=== PATIENT | female | born 1960 | race Caucasian/White ===

== ENCOUNTER 2017-07-19 06:19 | Inpatient (IN) ==
[~2017-07-19 06:19] MED LIST: Bacitracin 50,000 UNIT, Polymyxin B Sulfate 500,000 UNIT, Sodium Chloride IRRigation 1,... IR ONE
[2017-07-19] MEDS ORDERED: CeFAZolin Syr 2,000MG/20 ML 2,000 MG/20 ML SYRINGE IVPB ONE (06:36)
[2017-07-19] MEDS ORDERED: Albuterol 2.5 MG/3 ML NEBULIZER IH ONE (06:36)
[2017-07-19] MEDS ORDERED: Albuterol 2.5 MG/3 ML NEBULIZER ONE (06:42)
[2017-07-19] MEDS ORDERED: Ringers Solution, Lactated 1,000 ML IVC SCH (06:45)
[2017-07-19] MEDS ORDERED: *HR* Midazolam HCl 2 MG/2 ML VIAL ONE (06:47)
[2017-07-19] MEDS ORDERED: *HR* Propofol 200 MG/20 ML VIAL IVP ONE (06:47)
[2017-07-19] MEDS ORDERED: Lidocaine -MPF 2% 2 ML VIAL ONE ×2 (06:47→06:56)
[2017-07-19] MEDS ORDERED: Lidocaine -MPF 4% 5 ML AMPUL ONE (06:47)
[2017-07-19] MEDS ORDERED: *HR* FentaNYL (PF) 100 MCG/2 ML VIAL ONE (06:47)
[2017-07-19] MEDS ORDERED: Ondansetron 4 MG/2 ML VIAL ONE (06:47)
--- NOTE | 2017-07-19 07:25 | Anesthesia Evaluation PreOp ---
Date of Encounter: 07/19/17 Time of Encounter: 07:20 - Past History Planned Operation: exploration of spinal fusion, removal of hardware Cardiac History: HTN, Other (Has had a heart cath in the past, no stents. No sign. pathology identified. 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 Any Significant HX, Other (anxiety) Other Medical History: Denies Any Significant HX Anesthesia History: No Prior Anesthetic Complications, Past Anesthesia Alcohol Use: none Drug use: marijuana (Nearly daily marijuana use for self treatment of anxiety.) Medications and Allergies Atenolol [Tenormin] 25 mg PO DAILY 09/02/15 [History] Atorvastatin [Lipitor] 40 mg PO HS 09/02/15 [History] Ranitidine HCl [Zantac] 150 mg PO BID 11/12/16 [History] Gabapentin [Neurontin] 300 mg PO TID 07/19/17 [History] Lisinopril-HCTZ 20-12.5 [Prinzide 20-12.5] 1 tab PO DAILY 07/19/17 [History] clonazePAM [Klonopin] 0.5 mg PO BID 07/19/17 [History] 3 Allergy/AdvReac Type Severity Reaction Status Date / Time ibuprofen [From Motrin] Allergy Hives Verified 07/13/17 15:31 naproxen Allergy Hives Verified 07/13/17 15:31 propoxyphene Allergy Hives Verified 07/13/17 15:31 [From Darvocet-N 100] soybean [From Ultramino] Allergy Hives Verified 07/13/17 15:31 - Meds/Allergy Pre-op Review Medications Reviewed: Yes Allergies Reviewed: Yes Beta Blockers on Current Med List: Yes (atenolol at 0415) Anesthesia Results - Imaging EKG: image reviewed (sinus efren) Anesthesia Exam Selected Entries 07/19/17 06:40 Temperature 98.6 F Pulse Rate 54 Respiratory Rate 18 Blood Pressure 120/82 O2 Sat by Pulse Oximetry 96 Weight: 63 kg NPO (# of Hours): over 8 hours - HEENT Pupil (Motor): Pupils equal Mallampati: I Teeth: Edentulous Oral Opening: Greater than 3 - Cardiac Rhythm: Regular Murmur: None - Pulmonary Breath Sounds: bilateral Rhonchi Respiratory Effort: Symmetrical Anesthesia Assess/Plan ASA Score: 3 Modified Lani Scale for Level of Consciousness: Cooperative, oriented, and tranquil Anesthetic Plan: General Monitoring Plan: Standard Monitors Recovery Plan: PACU
[2017-07-19] MEDS ORDERED: *HR* Remifentanil 2 MG VIAL IVP ONE (07:26)
[2017-07-19] MEDS ORDERED: Lidocaine -MPF 1% 2 ML VIAL ONE (07:40)
--- NOTE | 2017-07-19 08:04 | History & Physical Report ---
Date of Encounter: 07/19/17 Time of Encounter: 08:03 24 Hour HP Update - Instructions Instructions: If the History and Physical is less than 30 days old and was completed prior to A.M. admission and or procedure and has NOT been updated on calendar day of procedure please complete this update prior to performing procedure. - Update Patient reports changes in Medical Condition: No Changes in examination, assessment, or condition: No Changes in Medication: No Preop tests/diagnostics Reviewed: Yes Pre-Op MRSA Screen: Negative Surgery Remains Indicated: Yes Consent for Planned Operative Procedure(s) Verified: Yes - Pre-Operative Checklist Preoperative Checklist Indicated: No Prophylactic Antibiotic Ordered: Yes Home Medications Include Beta Chan: Yes Beta Chan Taken Today (Day of Surgery): No Beta Chan Taken Yesterday (Day Prior to Surgery): Yes Is VTE Prophylaxis Indicated?: Yes
[2017-07-19] MEDS ORDERED: EPHEDrine 50 MG/ML VIAL ONE (08:30)
[2017-07-19] MEDS ORDERED: Water for inj. (sterile) 10 ML IV ONE (08:31)
[2017-07-19] MEDS ORDERED: Ondansetron 4 MG/2 ML VIAL IVP ONE ×2 (08:42→17:51)
[2017-07-19] MEDS ORDERED: *HR* Promethazine 25 MG/ML VIAL IVP PRN (08:42)
[2017-07-19] MEDS ORDERED: *HR* Labetalol 20 MG/4 ML SYRINGE IVP PRN (08:42)
[2017-07-19] MEDS ORDERED: *HR* Morphine 2 MG/ML SYRINGE IVP PRN (08:42)
[2017-07-19] MEDS ORDERED: *HR* Rocuronium Bromide 50 MG/5 ML VIAL ONE (09:58)
[2017-07-19] MEDS ORDERED: *HR* Phenylephrine 10 MG/ML VIAL ONE (09:58)
[2017-07-19] MEDS ORDERED: Dexamethasone 4 MG/ML VIAL ONE (09:58)
[2017-07-19] MEDS ORDERED: *HR* Succinylcholine 200 MG/10 ML VIAL IVP ONE (09:58)
[2017-07-19] MEDS ORDERED: *HR* HYDROmorphone 2 MG/ML SYRINGE ONE (10:49)
--- NOTE | 2017-07-19 11:50 | Orthopedic Operative Note ---
Date of procedure: 07/19/17 Pre-op diagnosis: Lumbar stenosis, lumbar radiculopathy, history of lumbar fusion Post-op diagnosis: same Operation/Findings: Exploration of fusion, removal of hardware, posterior lumbar interbody fusion L3 -L5: The patient successfully underwent general endotracheal anesthesia. The patient was given antibiotics prior to the start of the procedure. Compression boots and stockings were used for deep vein thrombosis prophylaxis. A Bueno catheter was placed. Leads for neuro monitoring were placed on the upper and lower extremities. This included the cranium. The neuro monitoring personnel confirmed there were satisfactory readings prior to the start of the procedure. The patient was turned prone on the Lee table. The back was prepped and draped in the usual sterile fashion. An incision was was marked and centered over the involved L3-S1 levels in the mid line. The incision was deepened through the lumbar fascia. Bovie cautery and Palma elevators were used to reflect the paraspinal musculature at the lateral extent of the transverse processes of the L3, L4, L5, and S1 involved levels. Gudelia clamps were placed over the L4 and L5 spinous processes. An intraoperative lateral fluoroscopy graft was obtained. A conversation was held between the surgeon and radiologist and both confirmed we had the correct operative levels. We further exposed the hardware which is apparent at L5-S1. The fusion mass at L5-S1 was explored and palpated. There appeared to be a solid arthrodesis at this L5-S1 level. Using standard instruments the rods and pedicle screws were removed bilaterally at L5 and S1. We then placed pedicle screws in standard fashion with the aid of fluoroscopy and anatomic landmarks. Briefly a starter awl was used. A gearshift was subsequently used to enter the airline pilot/first officer hole via a transpedicular route into the vertebral body. The airline pilot/first officer hole was tapped with an undersized instrument, and subsequently six 6.5 x 40 mm pedicle screws were placed bilaterally at the indicated L3, L4, and L5 levels. The screws were tested with the aid of the neurologic monitoring staff via pedicle screw stimulation. All reading suggested there was no significant cortical wall breech. The screws were also evaluated fluoro- graphically and appeared to be in satisfactory position. We then turned our attention to the decompression portion of the procedure. We removed the supraspinous and interspinous ligaments and subsequently the insertion of the ligamentum flavum on the undersurface of the proximal L4 lamina was dislodged with a curette. We then removed the ligamentum flavum as well as undercut the L4-5 facets at this level to decompress the lateral recesses. We also performed a L4 laminectomy. After the decompression, which was over and above that which was required to place the interbody graft, the foramen and traversing roots at this level were found to be free and patent. We also took part of the medial facet in order to aid in the decompression. We proceeded proximally to the L3-4 level and again performed a L3 laminectomy, removed hypertrophied ligamentum flavum, undercut the facets at the L3-4 level to decompress the lateral recesses, and perform partial medial facetectomies. Again we found the foramen and traversing nerve roots at this level to be free and patent after the decompression. We then protected the neural elements including the thecal sac and traversing nerve root on the right at L4-5 with a dural retractor. We made an annulotomy into the L4-5 disc space and then removed entire disc material using Pituitary instruments. We trialed various size grafts after the endplates were prepared for graft insertion. A 10 x 26 enter body graft fit well within the L4-5 disc space. We obtained some bone from the right posterior superior iliac spine through us a separate incision and combined with this with the bone which we had saved from the laminectomies portion of the procedure. This autograft bone was first placed in the anterior portion of the L4-5 disc space and additional bone was placed within the interbody graft spacer. We then placed the interbody graft spacer obliquely across the L4-5 disc space towards the midline while protecting the neural elements with a root retractor. When the graft was found to be in satisfactory position the automatic pinsetter adjuster was removed. We then copiously irrigated the wound. We then decorticated the transverse processes of L3, L4, and L5 as well as the facet joints of the involved L3-4 and L4-5 levels to aid in the posterolateral fusion. We placed autograft bone in the lateral gutters over these regions. We then placed rods within the screw heads of the involved L3, L4, and L5 levels and first locked the distal screws and then subsequently locked the proximal screws so as to improve and reduce the spondylolisthesis previously seen. We then closed the wound in layers with 1 Vicryl for the fascia, 2-0 Vicryl. Subcutaneous tissue, and Dermabond was used for skin closure. Sterile dressings were placed over the wound. The patient was turned supine on a hospital bed and extubated. All sponge instruments and needle counts were correct at the end of the procedure. The patient tolerated the procedure well without complications. Anesthesia: VITOA Surgeon: Monroe Marrero Jr Was there an orthodontist assistant present: No Estimated blood loss (cc): 375 Specimen: None Condition: stable Disposition: PACU
[2017-07-19] MEDS ORDERED: *HR* HYDROmorphone (PF) 1 MG/ML SYRINGE ONE (12:04)
[2017-07-19] MEDS: *HR* HYDROmorphone (PF) 1 MG/ML SYRINGE IVP PRN ×2 (12:05→12:10)
[2017-07-19] MEDS ORDERED: Ondansetron 4 MG/2 ML VIAL IVP PRN (12:47)
[2017-07-19] MEDS ORDERED: Naloxone 0.4 MG/ML INJ IVP PRN (12:47)
[2017-07-19] MEDS ORDERED: *HR* OxyCODONE Immed Rel 5 MG TABLET PO SCH (12:47)
[2017-07-19] MEDS: Ringers Solution, Lactated 1,000 ML IVC SCH ×2 (13:32→23:03)
--- NOTE | 2017-07-19 13:43 | Anesthesia Evaluation Post Op ---
Date of Encounter: 07/19/17 Time of Encounter: 13:00 - Vital Signs Vital Signs: Vital Signs/O2 Sat/Glucose, Most Current Temp Pulse Resp BP Pulse Ox 07/19/17 12:47 97.1 F L 67 16 105/61 98 07/19/17 12:37 67 16 113/71 98 07/19/17 12:27 97.1 F L 64 16 120/71 98 07/19/17 12:17 66 16 117/67 98 07/19/17 12:07 66 12 126/83 98 07/19/17 11:57 97.6 F 79 10 127/89 99 - Lungs Lungs: Clear Ascult./Percussion - Airway Airway: Non-obstructed - Cardiovascular Regular Rate - Mental Status Mental Status: Alert & Oriented, Answers Appropriately - Pain Pain Scale: 1 - Nausea Vomiting Nausea Vomiting: Not Present - Hydration Hydration: Ice chips - Discharge PostOp Status: Transfer Patient to floor
[2017-07-19] MEDS: CeFAZolin Premix DUPLEX 2,000 MG/50 ML BAG IVPB SCH ×2 (15:15→23:03)
[2017-07-19] MEDS: *HR* OxyCODONE Immed Rel 5 MG TABLET PO PRN ×2 (16:39→20:10)
[2017-07-19] MEDS: *HR* Morphine 2 MG/ML SYRINGE IVP PRN ×2 (17:29→22:15)
[2017-07-19] MEDS: clonazePAM 0.5 MG TABLET PO SCH (20:07)
[2017-07-19] MEDS: Famotidine 20 MG TABLET PO SCH (20:07)
[2017-07-20] MEDS: *HR* OxyCODONE Immed Rel 5 MG TABLET PO PRN ×6 (00:14→23:17)
[2017-07-20] MEDS: *HR* Morphine 2 MG/ML SYRINGE IVP PRN ×5 (02:49→20:53)
[2017-07-20 06:54] LABS: Basophils % 0.1 %; Eosinophils % 0.1 %; Hematocrit 29.2 % (35.3-44.9); Immature Granulocytes % 0.3 % (0-4); Lymphocytes # 2.8 K/mcL (0.6-4.6); Lymphocytes % 18.5 %; Mean Corpuscular HGB Conc 32.9 g/dL (31.6-35.5); Mean Corpuscular Hemoglobin 30.3 pg (28.0-33.3); Mean Corpuscular Volume 92.1 fL (83.0-100.0); Mean Platelet Volume 10.5 fL (9.4-12.4); Monocytes # 1.2 K/mcL (0.0-1.3); Platelet Count 235 K/mcL (140-400); Red Blood Count 3.17 M/mcL (3.82-4.97); Red Cell Distribution Width 13.2 % (11.5-14.5)
[2017-07-20 06:58] LABS: Hemoglobin 9.6 g/dL (11.5-15.4)
[2017-07-20] MEDS: Lisinopril-HCTZ 20-12.5mg TABLET PO SCH (08:00)
[2017-07-20] MEDS: Famotidine 20 MG TABLET PO SCH ×2 (08:00→19:33)
[2017-07-20] MEDS: clonazePAM 0.5 MG TABLET PO SCH ×2 (08:00→19:33)
[2017-07-20] MEDS: Acetaminophen 325 MG TABLET PO PRN ×2 (08:01→16:14)
[2017-07-20 09:41] LABS: BUN/Creatinine Ratio 21 (6-26); Blood Urea Nitrogen 10 mg/dL (6-20); Calcium 8.6 mg/dL (8.6-10.3); Carbon Dioxide 25 mEq/L (23-29); Chloride 109 mEq/L (98-107); Glucose 109 mg/dL (70-105); Osmolality,Calculated 290 (280-300); Potassium 3.7 mEq/L (3.5-5.1); Sodium 140 mEq/L (136-145); eGFR For African Americans > 60 (> 60); eGFR For Non-African Americans > 60 (> 60)
[2017-07-21] MEDS: *HR* Morphine 2 MG/ML SYRINGE IVP PRN ×2 (02:14→06:38)
[2017-07-21] MEDS: *HR* OxyCODONE Immed Rel 5 MG TABLET PO PRN ×3 (05:11→22:11)
--- NOTE | 2017-07-21 08:28 | Spine Progress Note ---
Date of Encounter: 07/20/17 Time of Encounter: 19:25 Subjective Principal diagnosis: Status post lumbar fusion Interval history: The patient is without complaints. Afebrile vital signs are stable. Incision is clean dry and intact. Neurovascularly intact with regard to bilateral lower extremities. Fires all upper and lower extremity motor groups. Assessment : stable. Plan mobilize ,continue analgesics, discharge planning. Objective Vital signs: Vital Signs Temp Pulse Resp BP Pulse Ox 07/21/17 06:50 98.8 F 78 16 114/78 96 07/21/17 00:17 99.5 F 73 17 111/73 95 07/20/17 20:31 99.2 F 73 18 101/65 93 07/20/17 15:51 99.3 F 64 16 99/64 94 07/20/17 10:56 98.3 F 69 16 135/80 95 Intake and Output 07/20/17 07/21/17 07/21/17 23:59 07:59 15:59 Intake Total 50 / 50 Balance 50 / 50 Intake: Oral 50 / 50 - Labs CBC & BMP: 07/20/17 06:42 07/20/17 06:42 Labs: Abnormal lab results WBC 15.1 K/mcL (4.3-11.1) H D 07/20/17 06:42 RBC 3.17 M/mcL (3.82-4.97) L 07/20/17 06:42 Hgb 9.6 g/dL (11.5-15.4) L D 07/20/17 06:42 Hct 29.2 % (35.3-44.9) L 07/20/17 06:42 Neutrophils # 11.0 K/mcL (1.6-8.9) H 07/20/17 06:42 Chloride 109 mEq/L (98-107) H 07/20/17 06:42 Creatinine 0.48 mg/dL (0.60-1.20) L 07/20/17 06:42 Glucose 109 mg/dL (70-105) H 07/20/17 06:42 Consult Discharge Plan - Plan Referrals: Crystal Morelos, [employer] ACCOUNT MANAGER [Primary Care Provider] -
[2017-07-21] MEDS: Lisinopril-HCTZ 20-12.5mg TABLET PO SCH (09:01)
[2017-07-21] MEDS: clonazePAM 0.5 MG TABLET PO SCH (09:01)
[2017-07-21] MEDS: Famotidine 20 MG TABLET PO SCH ×2 (09:01→20:33)
[2017-07-21] MEDS ORDERED: *HR* OxyCODONE Immed Rel 5 MG TABLET PO PRN (14:12)
[2017-07-22] MEDS: clonazePAM 0.5 MG TABLET PO SCH ×2 (01:24→10:08)
[2017-07-22] MEDS: *HR* OxyCODONE Immed Rel 5 MG TABLET PO PRN ×3 (06:22→16:00)
[2017-07-22] MEDS: Lisinopril-HCTZ 20-12.5mg TABLET PO SCH (10:09)
[2017-07-22] MEDS: Famotidine 20 MG TABLET PO SCH (10:09)
[2017-07-22 11:26] VITALS: BP 114/76
--- NOTE | 2017-07-22 14:00 | Discharge Summary ---
Date of Encounter: 07/22/17 Time of Encounter: 13:57 - Discharge Diagnosis (1) Lumbar stenosis Priority: Primary Status: Acute Qualifiers: Neurogenic claudication status: without neurogenic claudication Qualified Code(s): M48.061 - Spinal stenosis, lumbar region without neurogenic claudication (2) Lumbar radiculopathy Priority: Secondary Status: Chronic (3) History of lumbar spinal fusion Priority: Secondary Status: Chronic - Discharge Medications Prescriptions: OxyCODONE Immed Rel [Roxicodone 5 MG] 5 mg PO Q4HR PRN #30 tablet PRN Reason: Pain Home Medications: Atenolol [Tenormin] 25 mg PO DAILY 09/02/15 [History] Atorvastatin [Lipitor] 40 mg PO HS 09/02/15 [History] Ranitidine HCl [Zantac] 150 mg PO BID 11/12/16 [History] Gabapentin [Neurontin] 300 mg PO TID 07/19/17 [History] Lisinopril-HCTZ 20-12.5 [Prinzide 20-12.5] 1 tab PO DAILY 07/19/17 [History] clonazePAM [Klonopin] 0.5 mg PO BID 07/19/17 [History] OxyCODONE Immed Rel [Roxicodone 5 MG] 5 mg PO Q4HR PRN #30 tablet 07/22/17 [Rx] Allergies/Adverse Reactions: 3 Allergy/AdvReac Type Severity Reaction Status Date / Time ibuprofen [From Motrin] Allergy Hives Verified 07/13/17 15:31 naproxen Allergy Hives Verified 07/13/17 15:31 propoxyphene Allergy Hives Verified 07/13/17 15:31 [From Darvocet-N 100] soybean [From Ultramino] Allergy Hives Verified 07/13/17 15:31 - Impressions ITS Impressions Lumbar Spine X-Ray 07/19/17 00:00 IMPRESSION: Status post L3-L5 posterior spinal fusion. Interbody spacers at L4-L5 and L5-S1. Interval previously demonstrated L5-S1 posterior spinal fusion hardware. D/ / Alexx Penn MD / Alexx Penn MD Interpreting Provider: Alexx Penn MD Lumbar Spine X-Ray 07/22/17 08:30 IMPRESSION: Satisfactory appearance of lumbar spine following fusion between L3 and L5. D/ / Jonathon Pantoja MD / Jonathon Pantoja MD Interpreting Provider: Jonathon Pantoja MD Date of admission: 07/19/17 13:57 Primary care physician: Crystal Morelos CNP Consults: 07/19/17 12:47 Consult to Occupational Therapy [CONS] Routine Comment: Evaluate, develop and implement POC Reason for Consult: Postoperative rehabilitation Consult to Physical Therapy [CONS] Routine Comment: Evaluate, develop and implement POC Reason for Consult: Postoperative rehabilitation Consult to Spine Navigator [CONS] [CONS] Routine - Patient Status Disposition: Home, Self-Care Condition: Good Functional capacity at discharge: independent ambulation Overall status at discharge: patient is progressing back to baseline - Discharge Instructions Follow Up With: Taty Engel PAC [Physician Grain Drier] - 08/03/17 9:30 am Bladimir Gentile MD [Partnered Physician] - 09/06/17 2:30 pm Monroe Marrero Jr, MD [Partnered Physician] - 10/21/17 11:15 am Crystal Morelos CNP [Primary Care Provider] - - Diet and Activity Activity: as per physical therapy Diet: advance to your usual diet - Hospital Course Hospital course: Ms. Panchal is a 56 year old female The patient had an uneventful postoperative course. Progressed from intravenous analgesic needs to oral analgesic needs only. Remained neurovascularly intact and mobilized satisfactorily. All intraoperative and/or postoperative radiographic studies were satisfactory. Patient is discharged with plan for rehabilitation and follow-up in 2 weeks post discharge on analgesic medication and patient's home medications. - Time Spent with Patient Total time spent providing and/or coordinating discharge services: - VTE Documentation of Mechanical Device: Graduated compression elastic hosiery
--- NOTE | 2017-07-22 14:39 | Spine Progress Note ---
Date of Encounter: 07/21/17 Time of Encounter: 16:30 - Assessment and Plan (1) Lumbar stenosis Current Visit: Yes Status: Acute Qualifiers: Neurogenic claudication status: without neurogenic claudication Qualified Code(s): M48.061 - Spinal stenosis, lumbar region without neurogenic claudication (2) Lumbar radiculopathy Current Visit: Yes Status: Chronic (3) History of lumbar spinal fusion Current Visit: Yes Status: Chronic Subjective Principal diagnosis: Status post lumbar fusion Interval history: The patient is without complaints. Afebrile vital signs are stable. Incision is clean dry and intact. Neurovascularly intact with regard to bilateral lower extremities. Fires all upper and lower extremity motor groups. Assessment : stable. Plan mobilize ,continue analgesics, discharge planning. Objective Vital signs: Vital Signs Temp Pulse Resp BP Pulse Ox 07/22/17 10:17 98 07/22/17 09:44 98.4 F 98 16 114/76 98 07/22/17 06:30 98.7 F 78 16 127/84 98 07/22/17 01:10 98.4 F 83 17 122/80 97 07/21/17 20:39 98.4 F 81 17 111/76 95 07/21/17 15:05 98.3 F 77 16 104/61 99 Intake and Output 07/21/17 07/22/17 07/22/17 23:59 07:59 15:59 Intake Total 400 / 400 Balance 400 / 400 Intake: Oral 400 / 400 Other: # Voids 2 - Labs CBC & BMP: 07/20/17 06:42 07/20/17 06:42 Labs: Abnormal lab results WBC 15.1 K/mcL (4.3-11.1) H D 07/20/17 06:42 RBC 3.17 M/mcL (3.82-4.97) L 07/20/17 06:42 Hgb 9.6 g/dL (11.5-15.4) L D 07/20/17 06:42 Hct 29.2 % (35.3-44.9) L 07/20/17 06:42 Neutrophils # 11.0 K/mcL (1.6-8.9) H 07/20/17 06:42 Chloride 109 mEq/L (98-107) H 07/20/17 06:42 Creatinine 0.48 mg/dL (0.60-1.20) L 07/20/17 06:42 Glucose 109 mg/dL (70-105) H 07/20/17 06:42 Consult Discharge Plan - Plan Referrals: Taty Engel PAC [Physician Paint And Table Edger] - 08/03/17 9:30 am Bladimir Gentile MD [Partnered Physician] - 09/06/17 2:30 pm Monroe Marrero Jr, MD [Partnered Physician] - 10/21/17 11:15 am Crystal Morelos CNP [Primary Care Provider] - Prescriptions: OxyCODONE Immed Rel [Roxicodone 5 MG] 5 mg PO Q4HR PRN #30 tablet PRN Reason: Pain
== END 2017-07-22 16:25 | disposition home or self-care (01) | DRG 304 ==
LOC: SAMDAY 06:19 → 3NENU 13:57
PROVIDERS: ADMIT Orthopaedic Surgery Orthopaedic Surgery of the Spine; ATTEND Orthopaedic Surgery Orthopaedic Surgery of the Spine

== ENCOUNTER 2019-08-02 23:46 | Observation (INO) ==
[2019-08-03] MEDS ORDERED: Naloxone 0.4 MG/ML INJ IVP PRN (01:36)
[2019-08-03] MEDS ORDERED: Nitroglycerin 0.4 MG TAB.SUBL SL PRN (01:36)
[2019-08-03] MEDS ORDERED: Ondansetron 4 MG/2 ML VIAL IVP PRN (01:36)
[2019-08-03] MEDS ORDERED: Potassium Chloride Elixir 20 MEQ/15 ML UDC PO ONE (02:15)
[2019-08-03 02:42] LABS: Basophils # 0.1 K/mcL (0.0-0.2); Basophils % 0.6 %; Eosinophils # 0.1 K/mcL (0.0-0.6); Eosinophils % 1.3 %; Hematocrit 36.7 % (35.3-44.9); Hemoglobin 12.5 g/dL (11.5-15.4); Immature Granulocytes % 0.4 % (0-4); Lymphocytes # 3.3 K/mcL (0.6-4.6); Lymphocytes % 30.4 %; Mean Corpuscular HGB Conc 34.1 g/dL (31.6-35.5); Mean Corpuscular Hemoglobin 30.5 pg (28.0-33.3); Mean Corpuscular Volume 89.5 fL (83.0-100.0); Monocytes # 0.9 K/mcL (0.0-1.3); Monocytes % 8.4 %; Neutrophils # 6.4 K/mcL (1.6-8.9); Platelet Count 303 K/mcL (140-400); Segmented Neutrophils % 58.9 %; White Blood Count 10.9 K/mcL (4.3-11.1)
[2019-08-03 03:03] LABS: Alanine Aminotransferase 25 Units/L (7-52); Albumin 4.3 g/dL (3.5-5.7); Albumin/Globulin Ratio 1.8 (1.1-2.2); Alkaline Phosphatase 74 Units/L (34-104); Aspartate Amino Transferase 18 Units/L (13-39); BUN/Creatinine Ratio 19 (6-26); Bilirubin,Total 0.4 mg/dL (0.3-1.0); Blood Urea Nitrogen 12 mg/dL (6-20); Calcium 9.6 mg/dL (8.6-10.3); Carbon Dioxide 28 mEq/L (23-29); Chloride 103 mEq/L (98-107); Chol/HDL Ratio 3.8 (0-4.9); Cholesterol 142 mg/dL (< 200); Globulin 2.4 g/dL (2.4-3.5); Glucose 104 mg/dL (70-105); HDL Cholesterol 37 mg/dL (40-59); LDL Cholesterol,Calculated 79 mg/dL (0-99); Magnesium 1.8 mg/dL (1.6-2.6); Osmolality,Calculated 292 (280-300); Phosphorous 3.7 mg/dL (2.7-4.5); Potassium 3.1 mEq/L (3.5-5.1); Sodium 141 mEq/L (136-145); Total Protein 6.7 g/dL (6.4-8.9); Triglycerides 131 mg/dL (< 150); Troponin I < 0.03 ng/mL (< 0.04); eGFR For African Americans > 60 (> 60); eGFR For Non-African Americans > 60 (> 60)
[2019-08-03] MEDS: *HR* Heparin 5,000 UNIT/ML VIAL SQ SCH ×2 (04:35→17:49)
[2019-08-03] MEDS ORDERED: Regadenoson 0.4 MG/5 ML SYRINGE IVP ONE (06:11)
[2019-08-03] MEDS: Acetaminophen 325 MG TABLET PO PRN (09:12)
[2019-08-03] MEDS: Aspirin 81 MG TAB.CHEW PO SCH (09:13)
[2019-08-03 09:50] LABS: Estimated Average Glucose 123 mg/dl
[2019-08-03] MEDS: amLODIPine 5 MG TABLET PO SCH (17:49)
[2019-08-03] MEDS: *HR* OxyCODONE/APAP 10/325 TABLET PO PRN (17:49)
[2019-08-04] MEDS: *HR* OxyCODONE/APAP 10/325 TABLET PO PRN ×3 (00:42→17:34)
[2019-08-04] MEDS: Acetaminophen 325 MG TABLET PO PRN (04:05)
[2019-08-04 04:58] LABS: BUN/Creatinine Ratio 21 (6-26); Blood Urea Nitrogen 14 mg/dL (6-20); Calcium 9.6 mg/dL (8.6-10.3); Carbon Dioxide 27 mEq/L (23-29); Chloride 104 mEq/L (98-107); Glucose 98 mg/dL (70-105); Osmolality,Calculated 290 (280-300); Potassium 3.3 mEq/L (3.5-5.1); Sodium 140 mEq/L (136-145); eGFR For African Americans > 60 (> 60); eGFR For Non-African Americans > 60 (> 60)
[2019-08-04] MEDS: *HR* Heparin 5,000 UNIT/ML VIAL SQ SCH ×2 (05:41→16:38)
[2019-08-04] MEDS: amLODIPine 5 MG TABLET PO SCH (08:14)
[2019-08-04] MEDS: Aspirin 81 MG TAB.CHEW PO SCH (08:14)
[2019-08-04] MEDS ORDERED: ALPRAZolam 0.5 MG TABLET PO PRN (08:30)
[2019-08-04] MEDS ORDERED: Ibuprofen 800 MG TABLET PO PRN (08:30)
[2019-08-04] MEDS ORDERED: amLODIPine 5 MG TABLET PO SCH (09:00)
[2019-08-04] MEDS ORDERED: Lisinopril-HCTZ 20-12.5mg TABLET PO SCH (09:00)
[2019-08-04] MEDS ORDERED: Cholecalciferol (D-3) 1,000 UNIT (25MCG) TABLET PO SCH (09:00)
[2019-08-04] MEDS ORDERED: FLU Vac QV 19-20 (6Month+)/PF 0.5 ML SYRINGE IM ONE (13:41)
[2019-08-04 15:44] VITALS: BP 162/93
[2019-08-04] MEDS ORDERED: traZODone 50 MG TABLET PO SCH (21:00)
== END 2019-08-04 18:59 | disposition home or self-care (01) ==
LOC: 3BNU
PROVIDERS: ADMIT Internal Medicine; ATTEND Internal Medicine

== ENCOUNTER 2019-09-21 07:27 | Inpatient (IN) ==
[2019-09-21] MEDS ORDERED: Lidocaine Jelly 6ml 1 APPL/6 ML JEL.PF.APP ONE (07:36)
[2019-09-21] MEDS ORDERED: Albuterol 2.5 MG/3 ML NEBULIZER IH PRN (07:42)
[2019-09-21] MEDS ORDERED: CeFAZolin Syr 2,000MG/20 ML 2,000 MG/20 ML SYRINGE IVPB ONE (07:42)
[2019-09-21] MEDS ORDERED: *HR* Propofol 200 MG/20 ML VIAL IVP ONE (07:43)
[2019-09-21] MEDS ORDERED: *HR* PHENYLEPHRINE 1,000 MCG/10 ML SYRINGE IVP ONE ×2 (07:43→10:02)
[2019-09-21] MEDS ORDERED: *HR* FentaNYL (PF) 100 MCG/2 ML VIAL ONE ×2 (07:43→10:24)
[2019-09-21] MEDS ORDERED: *HR* Midazolam HCl 2 MG/2 ML VIAL ONE (07:43)
[2019-09-21] MEDS ORDERED: Lidocaine HCL 4 ML Topical Solution (Laryng-O-Jet Kit Sterile Pak) TP ONE (07:43)
[2019-09-21] MEDS ORDERED: Ondansetron 4 MG/2 ML VIAL ONE (07:43)
[2019-09-21] MEDS ORDERED: Ketorolac 30 MG/ML VIAL ONE (07:43)
[2019-09-21] MEDS ORDERED: *HR* Rocuronium Bromide 50 MG/5 ML VIAL ONE (07:43)
[2019-09-21] MEDS ORDERED: *HR* Succinylcholine 200 MG/10 ML VIAL IVP ONE (07:43)
[2019-09-21] MEDS ORDERED: Dexamethasone 4 MG/ML VIAL ONE (07:43)
[2019-09-21] MEDS ORDERED: Lidocaine -MPF 2% 2 ML VIAL ONE (07:43)
[2019-09-21] MEDS ORDERED: Ringers Solution, Lactated 1,000 ML IVC SCH (07:45)
[2019-09-21] MEDS ORDERED: Famotidine 20 MG/2 ML VIAL IVP ONE (07:46)
[2019-09-21] MEDS ORDERED: Acetaminophen IV 1,000 MG/100 ML INFUS..BTL IVPB ONE (07:46)
[2019-09-21] MEDS ORDERED: Gabapentin 300 MG CAPSULE PO ONE (07:47)
[2019-09-21] MEDS ORDERED: Ondansetron 4 MG/2 ML VIAL IVP ONE (09:51)
[2019-09-21] MEDS ORDERED: *HR* OxyCODONE Immed Rel 5 MG TABLET PO PRN (09:51)
[2019-09-21] MEDS ORDERED: *HR* Promethazine 25 MG/ML VIAL IVP PRN (09:51)
[2019-09-21] MEDS ORDERED: Fluticasone Propionate Nasal 50 MCG/SPRAY BOTTLE NS PRN (11:36)
[2019-09-21] MEDS ORDERED: Ondansetron 4 MG/2 ML VIAL IVP PRN (11:36)
[2019-09-21] MEDS ORDERED: Naloxone 0.4 MG/ML INJ IVP PRN (11:36)
[2019-09-21] MEDS: 0.9 % Sodium Chloride 1,000 ML IVC SCH (12:59)
[2019-09-21] MEDS: Ketorolac 15 MG/ML VIAL IVP SCH ×3 (13:00→23:35)
[2019-09-21] MEDS: *HR* Heparin 5,000 UNIT/ML VIAL SQ SCH ×2 (13:01→20:34)
[2019-09-21] MEDS: Gabapentin 300 MG CAPSULE PO SCH ×2 (14:24→20:31)
[2019-09-21] MEDS: *HR* HYDROcodone/Acet 5/325 mg TABLET PO PRN ×2 (14:26→20:34)
[2019-09-21] MEDS: Ipratropium/Albuterol Neb 3 ML IH SCH ×4 (16:50→23:46)
[2019-09-21] MEDS: Budesonide/Formoterol 160/4.5 1 PUFF INH IH SCH (20:18)
[2019-09-21] MEDS: Famotidine 20 MG TABLET PO SCH (20:31)
[2019-09-21] MEDS: Sennosides/Docusate Sodium TABLET PO SCH (20:31)
[2019-09-21] MEDS: traZODone 50 MG TABLET PO SCH (20:34)
[2019-09-21] MEDS: Lisinopril-HCTZ 20-12.5mg TABLET PO SCH (20:35)
[2019-09-22] MEDS: 0.9 % Sodium Chloride 1,000 ML IVC SCH (02:52)
[2019-09-22] MEDS: Ipratropium/Albuterol Neb 3 ML IH SCH ×6 (03:55→23:22)
[2019-09-22 05:24] LABS: Hematocrit 30.7 % (35.3-44.9); Hemoglobin 10.3 g/dL (11.5-15.4); Mean Corpuscular HGB Conc 33.6 g/dL (31.6-35.5); Mean Corpuscular Volume 92.5 fL (83.0-100.0); Mean Platelet Volume 9.8 fL (9.4-12.4); Platelet Count 289 K/mcL (140-400); Red Blood Count 3.32 M/mcL (3.82-4.97); Red Cell Distribution Width 13.4 % (11.5-14.5); White Blood Count 17.4 K/mcL (4.3-11.1)
[2019-09-22] MEDS: *HR* Heparin 5,000 UNIT/ML VIAL SQ SCH ×3 (05:31→21:01)
[2019-09-22] MEDS: *HR* HYDROcodone/Acet 5/325 mg TABLET PO PRN ×3 (05:31→19:47)
[2019-09-22] MEDS: Ketorolac 15 MG/ML VIAL IVP SCH ×4 (05:31→23:56)
[2019-09-22 05:45] LABS: % Iron Saturation 12 % (15-50); BUN/Creatinine Ratio 22 (6-26); Blood Urea Nitrogen 14 mg/dL (6-20); Calcium 8.6 mg/dL (8.6-10.3); Carbon Dioxide 26 mEq/L (23-29); Chloride 106 mEq/L (98-107); Glucose 131 mg/dL (70-105); Iron 36 mcg/dL (50-170); Magnesium 1.7 mg/dL (1.6-2.6); Osmolality,Calculated 288 (280-300); Potassium 3.8 mEq/L (3.5-5.1); Sodium 138 mEq/L (136-145); Transferrin 208 mg/dL (203-362); eGFR For African Americans > 60 (> 60); eGFR For Non-African Americans > 60 (> 60)
[2019-09-22] MEDS: Budesonide/Formoterol 160/4.5 1 PUFF INH IH SCH ×2 (07:17→20:27)
[2019-09-22] MEDS: Cholecalciferol (D-3) 1,000 UNIT (25MCG) TABLET PO SCH (09:04)
[2019-09-22] MEDS: Lisinopril-HCTZ 20-12.5mg TABLET PO SCH ×2 (09:04→21:05)
[2019-09-22] MEDS: Gabapentin 300 MG CAPSULE PO SCH ×3 (09:04→21:02)
[2019-09-22] MEDS: Famotidine 20 MG TABLET PO SCH ×2 (09:04→21:02)
[2019-09-22] MEDS: Sennosides/Docusate Sodium TABLET PO SCH ×2 (09:04→21:02)
[2019-09-22] MEDS: amLODIPine 5 MG TABLET PO SCH (09:05)
[2019-09-22] MEDS ORDERED: Iron Sucrose Complex 400 MG in 0.9 % Sodium Chloride 250 ML IVPB ONE (11:01)
[2019-09-22] MEDS: ALPRAZolam 0.5 MG TABLET PO PRN (19:47)
[2019-09-22] MEDS: traZODone 50 MG TABLET PO SCH (21:02)
[2019-09-23] MEDS: Ipratropium/Albuterol Neb 3 ML IH SCH ×6 (03:27→23:44)
[2019-09-23] MEDS: Ketorolac 15 MG/ML VIAL IVP SCH ×4 (05:07→23:30)
[2019-09-23] MEDS: *HR* Heparin 5,000 UNIT/ML VIAL SQ SCH ×3 (05:08→20:52)
[2019-09-23] MEDS: *HR* HYDROcodone/Acet 5/325 mg TABLET PO PRN (06:17)
[2019-09-23] MEDS: Budesonide/Formoterol 160/4.5 1 PUFF INH IH SCH ×2 (06:44→19:51)
[2019-09-23] MEDS ORDERED: Lisinopril-HCTZ 20-12.5mg TABLET ONE (08:45)
[2019-09-23] MEDS ORDERED: Cholecalciferol (D-3) 1,000 UNIT (25MCG) TABLET PO ONE (08:45)
[2019-09-23] MEDS ORDERED: Ipratropium/Albuterol Neb 3 ML ONE ×2 (08:45→15:24)
[2019-09-23] MEDS ORDERED: ALPRAZolam 0.5 MG TABLET ONE (08:45)
[2019-09-23] MEDS ORDERED: Sennosides/Docusate Sodium TABLET ONE (08:45)
[2019-09-23] MEDS ORDERED: Famotidine 20 MG TABLET ONE (08:45)
[2019-09-23] MEDS ORDERED: Gabapentin 300 MG CAPSULE ONE ×2 (08:45→15:24)
[2019-09-23] MEDS ORDERED: Ketorolac 15 MG/ML VIAL ONE (08:45)
[2019-09-23] MEDS ORDERED: amLODIPine 5 MG TABLET ONE (08:45)
[2019-09-23] MEDS ORDERED: *HR* HYDROcodone/Acet 7.5/325 mg TABLET ONE (11:53)
[2019-09-23] MEDS ORDERED: *HR* OxyCODONE/APAP 7.5/325 TABLET ONE (13:59)
[2019-09-23] MEDS ORDERED: *HR* HYDROcodone/Acet 7.5/325 mg TABLET PO PRN (14:45)
[2019-09-23] MEDS ORDERED: *HR* Heparin 5,000 UNIT/ML VIAL ONE (15:24)
[2019-09-23] MEDS: Famotidine 20 MG TABLET PO SCH ×2 (17:23→20:52)
[2019-09-23] MEDS: amLODIPine 5 MG TABLET PO SCH (17:23)
[2019-09-23] MEDS: Gabapentin 300 MG CAPSULE PO SCH ×2 (17:23→20:52)
[2019-09-23] MEDS: Sennosides/Docusate Sodium TABLET PO SCH ×2 (17:24→20:52)
[2019-09-23] MEDS: Lisinopril-HCTZ 20-12.5mg TABLET PO SCH ×2 (17:24→20:52)
[2019-09-23] MEDS: Cholecalciferol (D-3) 1,000 UNIT (25MCG) TABLET PO SCH (17:24)
[2019-09-23] MEDS: *HR* OxyCODONE/APAP 7.5/325 TABLET PO PRN ×2 (18:31→23:29)
[2019-09-23] MEDS: traZODone 50 MG TABLET PO SCH (20:51)
[2019-09-24] MEDS: Ipratropium/Albuterol Neb 3 ML IH SCH ×5 (03:28→20:25)
[2019-09-24] MEDS: *HR* Heparin 5,000 UNIT/ML VIAL SQ SCH ×3 (05:34→21:47)
[2019-09-24] MEDS: Ketorolac 15 MG/ML VIAL IVP SCH ×3 (05:34→18:25)
[2019-09-24] MEDS: *HR* OxyCODONE/APAP 7.5/325 TABLET PO PRN ×4 (06:22→18:42)
[2019-09-24] MEDS: Budesonide/Formoterol 160/4.5 1 PUFF INH IH SCH ×2 (07:32→20:25)
[2019-09-24] MEDS: Gabapentin 300 MG CAPSULE PO SCH ×3 (08:11→20:00)
[2019-09-24] MEDS: Sennosides/Docusate Sodium TABLET PO SCH ×2 (08:11→19:59)
[2019-09-24] MEDS: Lisinopril-HCTZ 20-12.5mg TABLET PO SCH ×2 (08:11→20:00)
[2019-09-24] MEDS: amLODIPine 5 MG TABLET PO SCH (08:11)
[2019-09-24] MEDS: Cholecalciferol (D-3) 1,000 UNIT (25MCG) TABLET PO SCH (08:12)
[2019-09-24] MEDS: Famotidine 20 MG TABLET PO SCH ×2 (08:12→19:59)
[2019-09-24] MEDS: ALPRAZolam 0.5 MG TABLET PO PRN ×2 (08:18→19:59)
[2019-09-24] MEDS: traZODone 50 MG TABLET PO SCH (20:00)
[2019-09-25] MEDS: Ketorolac 15 MG/ML VIAL IVP SCH ×5 (00:09→23:56)
[2019-09-25] MEDS: Ipratropium/Albuterol Neb 3 ML IH SCH ×7 (00:24→23:52)
[2019-09-25] MEDS: *HR* Heparin 5,000 UNIT/ML VIAL SQ SCH ×3 (05:13→20:26)
[2019-09-25] MEDS: Famotidine 20 MG TABLET PO SCH ×2 (07:42→20:22)
[2019-09-25] MEDS: Lisinopril-HCTZ 20-12.5mg TABLET PO SCH ×2 (07:42→20:26)
[2019-09-25] MEDS: Sennosides/Docusate Sodium TABLET PO SCH ×2 (07:42→20:22)
[2019-09-25] MEDS: Gabapentin 300 MG CAPSULE PO SCH ×3 (07:43→20:22)
[2019-09-25] MEDS: Cholecalciferol (D-3) 1,000 UNIT (25MCG) TABLET PO SCH (07:43)
[2019-09-25] MEDS: amLODIPine 5 MG TABLET PO SCH (07:43)
[2019-09-25] MEDS: Budesonide/Formoterol 160/4.5 1 PUFF INH IH SCH ×2 (07:50→19:47)
[2019-09-25] MEDS: *HR* OxyCODONE/APAP 7.5/325 TABLET PO PRN ×3 (07:55→20:22)
[2019-09-25] MEDS: traZODone 50 MG TABLET PO SCH (20:22)
[2019-09-25] MEDS: ALPRAZolam 0.5 MG TABLET PO PRN (20:25)
[2019-09-26] MEDS: *HR* OxyCODONE/APAP 7.5/325 TABLET PO PRN ×3 (03:35→13:25)
[2019-09-26] MEDS: Ipratropium/Albuterol Neb 3 ML IH SCH ×6 (04:09→23:42)
[2019-09-26] MEDS: Ketorolac 15 MG/ML VIAL IVP SCH ×2 (05:08→11:34)
[2019-09-26] MEDS: *HR* Heparin 5,000 UNIT/ML VIAL SQ SCH ×3 (05:08→20:53)
[2019-09-26] MEDS: Budesonide/Formoterol 160/4.5 1 PUFF INH IH SCH ×2 (07:50→20:22)
[2019-09-26] MEDS: Cholecalciferol (D-3) 1,000 UNIT (25MCG) TABLET PO SCH (07:53)
[2019-09-26] MEDS: amLODIPine 5 MG TABLET PO SCH (07:53)
[2019-09-26] MEDS: Famotidine 20 MG TABLET PO SCH ×2 (07:53→20:52)
[2019-09-26] MEDS: Gabapentin 300 MG CAPSULE PO SCH ×3 (07:53→20:52)
[2019-09-26] MEDS: Sennosides/Docusate Sodium TABLET PO SCH ×2 (07:53→20:53)
[2019-09-26] MEDS: Lisinopril-HCTZ 20-12.5mg TABLET PO SCH ×2 (07:53→20:53)
[2019-09-26] MEDS: ALPRAZolam 0.5 MG TABLET PO PRN (14:59)
[2019-09-26] MEDS ORDERED: *HR* HYDROmorphone (PF) 1 MG/ML SYRINGE IVP ONE (18:36)
[2019-09-26] MEDS: traZODone 50 MG TABLET PO SCH (20:53)
[2019-09-27] MEDS: *HR* OxyCODONE/APAP 7.5/325 TABLET PO PRN ×2 (00:07→05:22)
[2019-09-27] MEDS: Ipratropium/Albuterol Neb 3 ML IH SCH ×4 (04:52→15:45)
[2019-09-27] MEDS: *HR* Heparin 5,000 UNIT/ML VIAL SQ SCH ×2 (05:21→15:11)
[2019-09-27] MEDS: Budesonide/Formoterol 160/4.5 1 PUFF INH IH SCH (07:43)
[2019-09-27] MEDS: Cholecalciferol (D-3) 1,000 UNIT (25MCG) TABLET PO SCH (07:53)
[2019-09-27] MEDS: Famotidine 20 MG TABLET PO SCH (07:53)
[2019-09-27] MEDS: Lisinopril-HCTZ 20-12.5mg TABLET PO SCH (07:53)
[2019-09-27] MEDS: amLODIPine 5 MG TABLET PO SCH (07:54)
[2019-09-27] MEDS: Gabapentin 300 MG CAPSULE PO SCH ×2 (07:54→15:09)
[2019-09-27] MEDS: Sennosides/Docusate Sodium TABLET PO SCH (07:54)
[2019-09-27 11:20] VITALS: BP 94/66
[2019-09-27] MEDS: ALPRAZolam 0.5 MG TABLET PO PRN (15:09)
== END 2019-09-27 16:38 | disposition home or self-care (01) ==
LOC: SAMDAY 07:27 → 2NNU 11:33
PROVIDERS: ADMIT Thoracic Surgery (Cardiothoracic Vascular Surgery); ATTEND Thoracic Surgery (Cardiothoracic Vascular Surgery)